=== PATIENT | male | born 1990 | race Caucasian/White ===

== ENCOUNTER 2017-08-27 15:14 | Emergency (ER) | payer OTHER ==
[~2017-08-27] VITALS: Ht 177.8 cm; Wt 74.8 kg
[~2017-08-27 15:14] MED LIST: MEDROLDOSEPACK PO; MOBIC7.5 MG PO; ROBAXIN 750 MG750 M1 PO
[2017-08-27] MEDS ORDERED: KEFLEX500 M1 PO (15:36)
[2017-08-27] MEDS ORDERED: BACTRIM DS TAB1 EACH PO (15:36)
[2017-08-27 15:47] VITALS: BP 149/73
== END 2017-08-27 15:47 | disposition home or self-care (01) ==
LOC: M.ERS 15:14
DX: L03.114 Cellulitis of left upper limb (principal)

== ENCOUNTER → 2019-10-26 | Outpatient (CLI) | payer OTHER ==
[~2019-10-26] MED LIST changes: +BACTRIM DS TAB1 EACH PO; +KEFLEX500 M1 PO
== END ==
LOC: M.RAD 10:19
DX: M25.572 Pain in left ankle and joints of left foot (principal)